=== PATIENT | female | born 1965 | race Caucasian/White ===

== ENCOUNTER 2017-05-05 17:44 | Inpatient (IN) | payer OTHER ==
[2017-05-05] MEDS ORDERED: NORMAL SALINE 1000 ML 1,000 ML IV ONE ×2 (18:35→21:52)
[2017-05-05] MEDS ORDERED: ACETAMINOPHEN 325 MG TABLET PO ONE (19:01)
[2017-05-05] MEDS ORDERED: KETOROLAC TROMETHAMINE INJ/PF 30 MG/1 ML SDV IV ONE (19:01)
[2017-05-05 19:20] LABS: VENOUS BLOOD BASE EXCESS 4.2 mmol/L; VENOUS BLOOD HCO3 28.9 mmol/L (20-32); VENOUS BLOOD PCO2 43.8 mmHg (35-63); VENOUS BLOOD PH 7.44 (7.30-7.42)
[2017-05-05 19:21] LABS: HEMATOCRIT 37.9 % (36.0-47.0); HEMOGLOBIN 13.3 g/dL (12.0-15.5); MEAN CORPUSCULAR HEMOGLOBIN 29.9 pg (27.0-33.4); MEAN CORPUSCULAR HGB CONC 35.1 g/dL (32.0-36.0); MEAN CORPUSCULAR VOLUME 85 fl (80-97); PLATELET COUNT 166 10^3/uL (150-450); RED BLOOD COUNT 4.44 10^6/uL (3.72-5.28); RED CELL DISTRIBUTION WIDTH 13.4 % (11.5-14.0); WHITE BLOOD COUNT 5.8 10^3/uL (4.0-10.5)
[2017-05-05 19:30] LABS: PROTHROMBIN TIME 12.6 SEC (11.4-15.4)
[2017-05-05 19:31] LABS: INTERNATIONAL RATION (INR) 0.88
[2017-05-05 19:32] LABS: ALANINE AMINOTRANSFERASE 39 U/L (9-52); ALBUMIN 3.9 g/dL (3.5-5.0); ALKALINE PHOSPHATASE 76 U/L (38-126); ANION GAP 11 (5-19); ASPARTATE AMINO TRANSFERASE 59 U/L (14-36); BILIRUBIN,DIRECT 0.4 mg/dL (0.0-0.4); BILIRUBIN,TOTAL 0.4 mg/dL (0.2-1.3); BLOOD UREA NITROGEN 7 mg/dL (7-20); CARBON DIOXIDE 26 mmol/L (22-30); CHLORIDE 99 mmol/L (98-107); GLUCOSE 114 mg/dL (75-110); POTASSIUM 3.1 mmol/L (3.6-5.0); SODIUM 136.1 mmol/L (137-145); TOTAL PROTEIN 6.5 g/dL (6.3-8.2)
--- NOTE | 2017-05-05 19:42 | RADIOLOGY REPORT (SQ) ---
EXAM DESCRIPTION: CHEST PA/LAT COMPLETED DATE/TIME: 05/05/2017 7:31 pm REASON FOR STUDY: fever COMPARISON: None. EXAM PARAMETERS: NUMBER OF VIEWS: two views TECHNIQUE: Digital Frontal and Lateral radiographic views of the chest acquired. RADIATION DOSE: NA LIMITATIONS: none FINDINGS: LUNGS AND PLEURA: Mild by focal pleuroparenchymal scarring peer Left lower lobe airspace d isease. Lungs and pleural spaces otherwise clear. MEDIASTINUM AND HILAR STRUCTURES: No masses or contour abnormalities. HEART AND VASCULAR STRUCTURES: Heart normal size. No evidence for failure. BONES: No acute findings. HARDWARE: None in the chest. OTHER: No other significant finding. IMPRESSION: LEFT LOWER LOBE AIRSPACE DISEASE SUSPICIOUS FOR PNEUMONIA. RECOMMEND FOLLOWUP RADIOGRAP HS 4 TO 6 WEEKS TO ENSURE RESOLUTION. TECHNICAL DOCUMENTATION: JOB ID: [id number] [employer]- All Rights Reserved Reading location - IP/workstation name: [email or web address]
[2017-05-05 19:51] LABS: ABSOLUTE LYMPHOCYTES# (MANUAL) 0.3 10^3/uL (0.5-4.7); ABSOLUTE MONOCYTES # (MANUAL) 0.5 10^3/uL (0.1-1.4); BAND NEUTROPHILS % (MANUAL) 11 % (3-5); BASOPHILS % (MANUAL) 0 % (0-2); EOSINOPHILS % (MANUAL) 0 % (0-6); LYMPHOCYTES % (MANUAL) 6 % (13-45); MONOCYTES % (MANUAL) 8 % (3-13); SEGMENTED NEUTROPHILS % (MAN) 75 % (42-78); TOTAL CELLS COUNTED 100
[2017-05-05 19:53] LABS: PLATELET COMMENT ADEQUATE; PLATELET LARGE PRESENT; POLYCHROMASIA SLIGHT; TOXIC VACUOLATION PRESENT
[2017-05-05] MEDS ORDERED: IPRATROPIUM/ALBUTEROL 0.5-2.5 MG/3 ML AMPUL NEB ONE (20:59)
[2017-05-05] MEDS ORDERED: LEVOFLOXACIN 750 MG/D5W RTU 750 MG/150 ML RTUPB IV ONE (20:59)
[2017-05-05 21:10] LABS: APPEARANCE,URINE CLEAR; BILIRUBIN,URINE NEGATIVE (NEGATIVE); COLOR,URINE YELLOW; GLUCOSE, URINE NEGATIVE (NEGATIVE); KETONES,URINE TRACE mg/dL (NEGATIVE); LEUKOCYTE ESTERASE,URINE NEGATIVE (NEGATIVE); NITRITE,URINE NEGATIVE (NEGATIVE); PROTEIN,URINE NEGATIVE (NEGATIVE); URINE SPECIFIC GRAVITY 1.005; UROBILINOGEN,URINE NEGATIVE mg/dL (<2.0)
[2017-05-05] MEDS ORDERED: ACETAMINOPHEN 325 MG TABLET PO PRN (22:04)
[2017-05-05] MEDS ORDERED: IPRATROPIUM/ALBUTEROL 0.5-2.5 MG/3 ML AMPUL NEB PRN (22:04)
[2017-05-05] MEDS ORDERED: GUAIFENESIN SYRP 200 MG/10 ML UDC PO PRN (22:04)
--- NOTE | 2017-05-05 22:05 | ER Document Report ---
ED General - General Chief Complaint: Headache Stated Complaint: COUGH, BODY ACHE Time Seen by Provider: 05/05/17 18:32 TRAVEL OUTSIDE OF THE [place] IN LAST 30 DAYS: No - HPI Patient complains to provider of: Fever cough Notes: Patient coming in for evaluation of fever and cough ongoing for the last 5 days. Patient states multiple family members that I also have been sick. Patient denies any past medical history. Patient does not smoke or drink alcohol or do any drugs. Upon patient arrival patient with a fever of 103 heart rate of 111 blood pressure 95. Patient also was found to be slightly hypoxic with SPO2 at 98%. Patient states yellow sputum no recent antibiotics or recent travel. Denies nausea vomiting diarrhea - Related Data Allergies/Adverse Reactions: codeine [Codeine] Allergy (Verified 05/05/17 17:48) Nausea Past Medical History - Social History Smoking Status: Never Smoker Chew tobacco use (# tins/day): No Frequency of alcohol use: None Drug Abuse: None Family History: Reviewed & Not Pertinent Patient has suicidal ideation: No Patient has homicidal ideation: No Pulmonary Medical History: Reports: Hx Asthma, Hx Bronchitis Renal/ Medical History: Denies: Hx Peritoneal Dialysis Past Surgical History: Reports: Hx Hysterectomy, Hx Tubal Ligation - Immunizations Immunizations up to date: Yes Hx Diphtheria, Pertussis, Tetanus Vaccination: Yes Review of Systems - Review of Systems Constitutional: Fever EENT: No symptoms reported Cardiovascular: No symptoms reported Respiratory: Cough, Short of breath Gastrointestinal: No symptoms reported Genitourinary: No symptoms reported Female Genitourinary: No symptoms reported Musculoskeletal: No symptoms reported Skin: No symptoms reported Hematologic/Lymphatic: No symptoms reported Neurological/Psychological: No symptoms reported -: Yes All other systems reviewed and negative Physical Exam - Vital signs Vitals: Resp Pulse Ox 21 H 93 05/05/17 18:46 05/05/17 18:46 Interpretation: Hypotensive, Tachycardic, Hypoxic, Febrile - General General appearance: Appears well, Alert - HEENT Head: Normocephalic, Atraumatic Eyes: Normal Pupils: PERRL - Respiratory Respiratory status: No respiratory distress Chest status: Nontender Breath sounds: Normal, Rhonchi, Wheezing Chest palpation: Normal - Cardiovascular Rhythm: Tachycardia Heart sounds: Normal auscultation Murmur: No - Abdominal Inspection: Normal Distension: No distension Bowel sounds: Normal Tenderness: Nontender Organomegaly: No organomegaly - Back Back: Normal, Nontender - Extremities General upper extremity: Normal inspection, Nontender, Normal color, Normal ROM , Normal temperature General lower extremity: Normal inspection, Nontender, Normal color, Normal ROM , Normal temperature, Normal weight bearing. No: Becky's sign - Neurological Neuro grossly intact: Yes Cognition: Normal Orientation: AAOx4 [place] Coma Scale Eye Opening: Spontaneous [place] Coma Scale Verbal: Oriented Nina Coma Scale Motor: Obeys Commands [place] Coma Scale Total: 15 Speech: Normal Motor strength normal: LUE, RUE, LLE, RLE Sensory: Normal - Psychological Associated symptoms: Normal affect, Normal mood - Skin Skin Temperature: Warm Skin Moisture: Dry Skin Color: Normal Course - Re-evaluation Re-evalutation: 05/05/17 22:35 Patient laboratory values showed a bandemia and hypokalemia. Chest x-ray showed a left lower lobe pneumonia. Patient was given IV fluids with initial improvement of heart rate and blood pressure however upon reevaluation patient with tachycardia and blood pressure still 95 patient is on 2 L of oxygen and when taken off oxygen SPO2 did go down to 88%. Concern for possible early sepsis. Patient was given Levaquin discussed with hospitalist for further evaluation and admission. - Vital Signs Vital signs: Temp Pulse Resp BP Pulse Ox 98.5 F 18 97/58 L 93 05/05/17 22:19 05/05/17 21:33 05/05/17 21:33 05/05/17 21:33 - Laboratory Result Diagrams: 05/05/17 18:54 05/05/17 18:54 Laboratory results interpreted by me: 05/05/17 05/05/17 05/05/17 18:54 18:54 18:54 Band Neutrophils % 11 H Lymphocytes % (Manual) 6 L Abs Lymphs (Manual) 0.3 L VBG pH 7.44 H Sodium 136.1 L Potassium 3.1 L Creatinine 0.48 L Glucose 114 H AST 59 H Urine Ketones Urine Blood 05/05/17 20:45 Band Neutrophils % Lymphocytes % (Manual) Abs Lymphs (Manual) VBG pH Sodium Potassium Creatinine Glucose AST Urine Ketones TRACE H Urine Blood MODERATE H Critical Care Note - Critical Care Note Total time excluding time spent on procedures (mins): 35 Comments: multiple evals for sepsis Discharge - Discharge Clinical Impression: Dehydration Pneumonia Qualifiers: Pneumonia type: due to unspecified organism Laterality: left Lung location: lower lobe of lung Qualified Code(s): J18.1 - Lobar pneumonia, unspecified organism Fever Qualifiers: Fever type: unspecified Qualified Code(s): R50.9 - Fever, unspecified Condition: Good Disposition: ADMITTED INPATIENT Admitting Provider: [facility] Admitted: Telemetry
--- NOTE | 2017-05-05 22:37 | ER Document Report ---
Sepsis - Sepsis Documentation Sepsis Patient: Yes - Vital Signs Vitals: Temp Pulse Resp BP Pulse Ox 98.5 F 18 97/58 L 93 05/05/17 22:19 05/05/17 21:33 05/05/17 21:33 05/05/17 21:33 - Cardiovascular Peripheral Pulse Strength: Normal Capillary refill: < 3 seconds Rhythm: Regular, Tachycardia Heart Sounds: Normal auscultation - Respiratory Breath Sounds: Rhonchi Respiratory Status: No respiratory distress - Skin Skin Color: Normal
[2017-05-05] MEDS ORDERED: CHLORPHENIRAMINE MALEATE 4 MG TABLET PO ONE (23:52)
[2017-05-06] MEDS ORDERED: CHLORPHENIRAMINE MALEATE 4 MG TABLET ONE (01:10)
[2017-05-06] MEDS: NORMAL SALINE 1000 ML 1,000 ML IV SCH ×2 (01:17→03:50)
[2017-05-06] MEDS: IPRATROPIUM/ALBUTEROL 0.5-2.5 MG/3 ML AMPUL NEB SCH ×4 (02:06→20:13)
--- NOTE | 2017-05-06 03:06 | PDOC H&P ---
History of Present Illness Admission Date/PCP: 05/05/17 22:17 Patient complains of: Shortness of breath and cough History of Present Illness: JAJA COHEN is a 52 year old female with a past medical history of chronic bronchitis, who presents with 4 days of rhinorrhea sinus congestion productive cough developing fever and shortness of breath. She has had several ill contacts with pneumonia. In the emergency room she is found to have sepsis with hypotension, tachycardia, bandemia of 11 and an infiltrate of the left lower lobe. She receives albuterol and Atrovent started on empiric antibiotics with oxygen and referred to the hospitalist for admission. Patient denies previous pneumonia or recent antibiotics. Past Medical History Medical History: None Cardiac Medical History: Reports: None Pulmonary Medical History: Reports: Asthma, Bronchitis EENT Medical History: Reports: None Neurological Medical History: Reports: None Endocrine Medical History: Reports: None Renal/ Medical History: Reports: None Malignancy Medical History: Reports: None GI Medical History: Reports: None Musculoskeltal Medical History: Reports: None Skin Medical History: Reports: None Traumatic Medical History: Reports: None Hematology: Reports: None Infectious Medical History: Reports: None Past Surgical History Past Surgical History: Reports: Hysterectomy, Tubal Ligation Social History Information Source: Patient Smoking Status: Never Smoker Frequency of Alcohol Use: None Hx Recreational Drug Use: No Drugs: None Hx Prescription Drug Abuse: No - Advance Directive Resuscitation Status: Full Code Family History Family History: None Parental Family History Reviewed: Yes Children Family History Reviewed: Yes Sibling(s) Family History Reviewed.: Yes Medication/Allergy Home Medications: Hydrocodone/Chlorphen P-Stirex [Tussionex Pennkinetic Susp] 5 ml PO Q12 PRN # 100 laura.12h.sr 03/24/13 Ondansetron [Zofran Odt 4 mg Tablet] 1 - 2 tab PO Q4H PRN #15 tab.rapdis Acyclovir 800 mg PO 5XD #50 tab 03/18/14 Allergies/Adverse Reactions: codeine [Codeine] Allergy (Verified 05/05/17 17:48) Nausea Review of Systems Constitutional: ABSENT: chills, fever(s), headache(s), weight gain, weight loss Eyes: ABSENT: visual disturbances Ears: ABSENT: hearing changes Cardiovascular: ABSENT: chest pain, dyspnea on exertion, edema, orthropnea, palpitations Respiratory: PRESENT: as per HPI, cough, dyspnea, sputum. ABSENT: hemoptysis Gastrointestinal: ABSENT: abdominal pain, constipation, diarrhea, hematemesis, hematochezia, nausea, vomiting Genitourinary: ABSENT: dysuria, hematuria Musculoskeletal: ABSENT: joint swelling Integumentary: ABSENT: rash, wounds Neurological: ABSENT: abnormal gait, abnormal speech, confusion, dizziness, focal weakness, syncope Psychiatric: ABSENT: anxiety, depression, homidical ideation, suicidal ideation Endocrine: ABSENT: cold intolerance, heat intolerance, polydipsia, polyuria Hematologic/Lymphatic: ABSENT: easy bleeding, easy bruising Physical Exam Vital Signs: Temp Pulse Resp BP Pulse Ox 98.1 F 87 16 92/53 L 94 05/06/17 00:25 05/06/17 00:25 05/06/17 00:25 05/06/17 00:25 05/06/17 00:25 Intake & Output 05/04/17 05/05/17 05/06/17 11:59 11:59 11:59 Intake Total 0 Balance 0 General appearance: PRESENT: cooperative, severe distress, thin Head exam: PRESENT: atraumatic, normocephalic Eye exam: PRESENT: conjunctiva pink, EOMI, PERRLA. ABSENT: scleral icterus Ear exam: PRESENT: normal external ear exam Mouth exam: PRESENT: moist, tongue midline Neck exam: ABSENT: carotid bruit, JVD, lymphadenopathy, thyromegaly Respiratory exam: PRESENT: accessory muscle use, crackles, decreased breath sounds, rales, retraction, rhonchi, tachypnea, wheezes. ABSENT: chest wall tenderness, clear to auscultation funmilayo, prolonged expiratory phas Cardiovascular exam: PRESENT: RRR. ABSENT: diastolic murmur, rubs, systolic murmur Pulses: PRESENT: normal dorsalis pedis pul Vascular exam: PRESENT: normal capillary refill GI/Abdominal exam: PRESENT: normal bowel sounds, soft. ABSENT: distended, guarding, mass, organolmegaly, rebound, tenderness Rectal exam: PRESENT: deferred Extremities exam: PRESENT: full ROM. ABSENT: calf tenderness, clubbing, pedal edema Neurological exam: PRESENT: alert, awake, oriented to person, oriented to place , oriented to time, oriented to situation, CN II-XII grossly intact. ABSENT: motor sensory deficit Psychiatric exam: PRESENT: appropriate affect, normal mood. ABSENT: homicidal ideation, suicidal ideation Skin exam: PRESENT: dry, intact, warm. ABSENT: cyanosis, rash Results Impressions: Chest X-Ray 05/05/17 18:33 IMPRESSION: LEFT LOWER LOBE AIRSPACE DISEASE SUSPICIOUS FOR PNEUMONIA. RECOMMEND FOLLOWUP RADIOGRAPHS 4 TO 6 WEEKS TO ENSURE RESOLUTION. Assessment & Plan - Diagnosis (1) Sepsis Plan: Secondary to pneumonia, IV fluid challenge, consider Solu-Cortef and or pressors. (2) Acute sinusitis Is this a current diagnosis for this admission?: Yes Plan: Flonase, chlorpheniramine, empiric antibiotics, (3) Pneumonia Qualifiers: Pneumonia type: due to unspecified organism Laterality: left Lung location: lower lobe of lung Qualified Code(s): J18.1 - Lobar pneumonia, unspecified organism Is this a current diagnosis for this admission?: Yes Plan: Telemetry bed, incentive spirometry, flutter valve, pneumonia care set initiated. Follow-up CBC and blood culture - Time Time Spent: 50 to 70 Minutes - Inpatient Certification Medical Necessity: Need Close Monitoring Due to Risk of Patient Decompensation
[2017-05-06] MEDS: HEPARIN SOD (PORCINE) 5,000 UNIT/ML 1 ML SYRINGE SUBCUT SCH ×3 (06:36→22:23)
[2017-05-06 07:47] LABS: ABSOLUTE LYMPHOCYTES (AUTO) 0.5 10^3/uL (0.5-4.7); ABSOLUTE MONOCYTES (AUTO) 0.2 10^3/uL (0.1-1.4); ABSOLUTE NEUT (AUTO) 3.6 10^3/uL (1.7-8.2); BASOPHILS % (AUTO) 0.2 % (0-2); HEMATOCRIT 32.1 % (36.0-47.0); HEMOGLOBIN 11.6 g/dL (12.0-15.5); LYMPHOCYTES % (AUTO) 11.9 % (13-45); MEAN CORPUSCULAR HEMOGLOBIN 30.9 pg (27.0-33.4); MEAN CORPUSCULAR HGB CONC 36.2 g/dL (32.0-36.0); MEAN CORPUSCULAR VOLUME 85 fl (80-97); MONOCYTES % (AUTO) 4.5 % (3-13); PLATELET COUNT 119 10^3/uL (150-450); RED BLOOD COUNT 3.76 10^6/uL (3.72-5.28); RED CELL DISTRIBUTION WIDTH 13.2 % (11.5-14.0); SEGMENTED NEUTROPHILS % (AUTO) 83.4 % (42-78); TOTAL CELLS COUNTED % (AUTO) 100 %; WHITE BLOOD COUNT 4.3 10^3/uL (4.0-10.5)
--- NOTE | 2017-05-06 08:05 | EKG REPORT ---
SEVERITY:- ABNORMAL ECG - SINUS TACHYCARDIA LEFT ANTERIOR FASCICULAR BLOCK BORDERLINE T ABNORMALITIES, ANT-LAT LEADS : Confirmed by: Osmel Henley MD 06-May-2017 08:04:56
[2017-05-06 08:15] LABS: ANION GAP 7 (5-19); BLOOD UREA NITROGEN 4 mg/dL (7-20); CALCIUM 7.8 mg/dL (8.4-10.2); CARBON DIOXIDE 25 mmol/L (22-30); CHLORIDE 112 mmol/L (98-107); GLUCOSE 98 mg/dL (75-110); SODIUM 144.1 mmol/L (137-145)
[2017-05-06 08:42] LABS: POTASSIUM 2.8 mmol/L (3.6-5.0)
[2017-05-06] MEDS ORDERED: POTASSIUM CHLORIDE 10 MEQ TABLET.SA PO ONE (08:52)
[2017-05-06] MEDS: LEVOFLOXACIN 750 MG/D5W RTU 750 MG/150 ML RTUPB IV SCH (09:27)
[2017-05-06] MEDS: FLUTICASONE NASAL SPRAY 50 MCG/SPRY 120 SPRAY/16 GM NASL SCH ×2 (09:27→22:23)
[2017-05-06] MEDS ORDERED: TRAMADOL HCL 50 MG TABLET PO PRN (10:56)
[2017-05-06] MEDS ORDERED: LORATADINE 10 MG TABLET PO ONE (11:45)
[2017-05-06] MEDS: POTASSI CL 20 MEQ/50 ML RIDER 20 MEQ/50 ML RTUPB IV SCH ×2 (12:02→14:52)
[2017-05-06] MEDS: ONDANSETRON HCL INJ/PF 4 MG/2 ML SDV IV PRN (12:03)
--- NOTE | 2017-05-06 21:58 | PDOC PROGRESS REPORT ---
Subjective Progress Note for:: 05/06/17 Subjective:: 52 year old female with a past medical history of chronic bronchitis, who presents with 4 days of rhinorrhea, sinus congestion, productive cough developing fever and shortness of breath. She does describe fever and body aches, unclear if she could have the flu, no test available at this hospital. Tamiflu would not be effective this far into the infection. Patient appears to show a response to the Levaquin started, and has a left lower lobe PNA on CXR. She was nauseated and treated with zofran this AM. Complained of a DELACRUZ and nasal congestion. Reason For Visit: SEPSIS, PNEUMONIA Physical Exam Vital Signs: Temp Pulse Resp BP Pulse Ox 98.5 F 96 16 94/51 L 96 05/06/17 15:52 05/06/17 20:13 05/06/17 20:13 05/06/17 15:52 05/06/17 20:13 Pulse Oximeter Continuous Start: 05/05/17 22: 04 Freq: RTQ4 Status: Active Document 05/06/17 20:13 EAL (Rec: 05/06/17 20:27 EAL [email or web address]) Pulse Oximetry Assessment Oxygen Saturation (92-100) 96 Oxygen Flow Rate (L/min) 4 Oxygen Delivery Method Nasal Cannula Fraction of Inspired Oxygen (FIO2) 36 Equipment Usage Equipment in Use Continuous SpO2 Machine # 5 Intake & Output 05/05/17 05/06/17 05/07/17 06:59 06:59 06:59 Intake Total 300 1320 Balance 300 1320 Weight 70 kg General appearance: PRESENT: no acute distress, thin Head exam: PRESENT: atraumatic, normocephalic Eye exam: PRESENT: EOMI, PERRLA. ABSENT: conjunctiva pink Ear exam: PRESENT: normal external ear exam Mouth exam: PRESENT: moist, neck supple, tongue midline Neck exam: PRESENT: full ROM. ABSENT: JVD, lymphadenopathy, tenderness, thyromegaly Respiratory exam: PRESENT: rales. ABSENT: accessory muscle use, rhonchi, wheezes Cardiovascular exam: PRESENT: RRR, +S1, +S2. ABSENT: diastolic murmur, systolic murmur Pulses: PRESENT: normal radial pulses GI/Abdominal exam: ABSENT: ascites, distended, guarding, mass Extremities exam: ABSENT: clubbing, joint swelling Musculoskeletal exam: PRESENT: full ROM. ABSENT: deformity, normal inspection Neurological exam: PRESENT: alert, oriented to person, oriented to place, oriented to time, CN II-XII grossly intact Psychiatric exam: ABSENT: agitated, anxious, flat affect Focused psych exam: ABSENT: delusional, paranoid Skin exam: ABSENT: abrasion, cyanosis, dry, pallor Results Laboratory Results: 05/06/17 07:29 05/06/17 07:29 05/06/17 05/06/17 07:29 07:29 WBC 4.3 RBC 3.76 Hgb 11.6 L Hct 32.1 L MCV 85 MCH 30.9 MCHC 36.2 H RDW 13.2 Plt Count 119 L Seg Neutrophils % 83.4 H Lymphocytes % 11.9 L Monocytes % 4.5 Eosinophils % 0.0 Basophils % 0.2 Absolute Neutrophils 3.6 Absolute Lymphocytes 0.5 Absolute Monocytes 0.2 Absolute Eosinophils 0.0 Absolute Basophils 0.0 Sodium 144.1 Potassium 2.8 L* Chloride 112 H Carbon Dioxide 25 Anion Gap 7 BUN 4 L Creatinine 0.40 L Est GFR ( Amer) > 60 Est GFR (Non-Af Amer) > 60 Glucose 98 Calcium 7.8 L Impressions: Chest X-Ray 05/05/17 18:33 IMPRESSION: LEFT LOWER LOBE AIRSPACE DISEASE SUSPICIOUS FOR PNEUMONIA. RECOMMEND FOLLOWUP RADIOGRAPHS 4 TO 6 WEEKS TO ENSURE RESOLUTION. Assessment & Plan - Plan Summary Plan Summary: 1. Sepsis. PNA source, tachycardia, tachypnea, soft blood pressure. IVF, Levaquin, supportive care. 2. Left lower lobe PNA. continue IV Levaquin. continue supportive care. supportive O2, 4L nebulized meds prn. 3. Nasal congestion. with possible sinusitis, hold on doing any CT sinus eval, given her improvement on current therapy. 4. Headache. prn pain medications. 5. Hypokalemia. replacing 6. Nausea and vomiting prn zofran
[2017-05-07] MEDS: IPRATROPIUM/ALBUTEROL 0.5-2.5 MG/3 ML AMPUL NEB SCH ×4 (02:14→20:12)
[2017-05-07] MEDS: HEPARIN SOD (PORCINE) 5,000 UNIT/ML 1 ML SYRINGE SUBCUT SCH ×3 (05:44→22:09)
[2017-05-07 06:06] LABS: HEMATOCRIT 31.7 % (36.0-47.0); HEMOGLOBIN 11.1 g/dL (12.0-15.5); MEAN CORPUSCULAR HEMOGLOBIN 30.2 pg (27.0-33.4); MEAN CORPUSCULAR HGB CONC 35.1 g/dL (32.0-36.0); MEAN CORPUSCULAR VOLUME 86 fl (80-97); PLATELET COUNT 121 10^3/uL (150-450); RED BLOOD COUNT 3.69 10^6/uL (3.72-5.28); RED CELL DISTRIBUTION WIDTH 13.6 % (11.5-14.0); WHITE BLOOD COUNT 3.6 10^3/uL (4.0-10.5)
[2017-05-07 06:29] LABS: ALBUMIN 3.1 g/dL (3.5-5.0); ANION GAP 8 (5-19); BLOOD UREA NITROGEN 2 mg/dL (7-20); CALCIUM 8.7 mg/dL (8.4-10.2); CARBON DIOXIDE 29 mmol/L (22-30); CHLORIDE 107 mmol/L (98-107); GLUCOSE 101 mg/dL (75-110); PHOSPHORUS 2.8 mg/dL (2.5-4.5); SODIUM 143.6 mmol/L (137-145)
[2017-05-07 06:32] LABS: POTASSIUM 2.9 mmol/L (3.6-5.0)
[2017-05-07] MEDS: LORATADINE 10 MG TABLET PO SCH (07:55)
[2017-05-07] MEDS: LEVOFLOXACIN 750 MG/D5W RTU 750 MG/150 ML RTUPB IV SCH (09:58)
[2017-05-07] MEDS: FLUTICASONE NASAL SPRAY 50 MCG/SPRY 120 SPRAY/16 GM NASL SCH ×2 (09:58→22:17)
[2017-05-07] MEDS ORDERED: POTASSIUM CHLORIDE 10 MEQ TABLET.SA PO SCH (10:00)
[2017-05-07] MEDS: ONDANSETRON HCL INJ/PF 4 MG/2 ML SDV IV PRN (10:51)
[2017-05-07] MEDS ORDERED: POTASSIUM PHOS,M-BASIC-D-BASIC 40 MMOL in NORMAL SALINE 1000 ML 1,000 ML IV ONE (11:53)
--- NOTE | 2017-05-07 12:19 | PROGRESS NOTE E ---
Progress Note NAME: JAJA COHEN : 1965 AGE: 52Y DATE: 05/07/2017 ROOM: 414 SUBJECTIVE: The patient is a 52-year-old female who has a past medical history of chronic bronchitis, COPD. She was presented for 4 days with rhinorrhea, sinus congestion, productive cough, developing fever, shortness of breath. OBJECTIVE: GENERAL: The patient is lying in bed, comfortable, not in distress. VITAL SIGNS: Heart rate 99, respiratory rate 16, saturation 99% on 2 L. HEENT: Normocephalic, atraumatic. Pupils are round and reactive to light and accommodation bilaterally. Extraocular movements intact. Ears: Tympanic membranes intact bilaterally. No discharge from the ears. No discharge from the nose. NECK: Supple. No increased JVD. No thyromegaly. No lymphadenopathy. CARDIOVASCULAR: Normal S1 and S2. Regular rate and rhythm. No murmur. No gallop. RESPIRATORY: Bilateral crackles and wheezing. ABDOMEN: Soft and nontender. MUSCULOSKELETAL: No edema. NEUROLOGIC: Awake, alert. SKIN: No rash. DIAGNOSTIC DATA: Labs: White blood count 3.6, hemoglobin 11. Potassium 2.9, sodium 143. ASSESSMENT: 1. SEPSIS SECONDARY TO PNEUMONIA, RESOLVING. 2. LEFT LOWER LOBE PNEUMONIA, ON IV LEVAQUIN AND OXYGEN, IMPROVED. 3. NASAL CONGESTION. 4. HEADACHE. 5. HYPOKALEMIA, REPLACE. 6. NAUSEA AND VOMITING, ZOFRAN. PLAN: Continue IV Levaquin. Replace electrolytes with IV potassium. DISPOSITION: Home tomorrow. DICTATING PHYSICIAN: JAMIE RICHTER M.D. [id number] PHY#: [id number] ID: [id number] JOB#: [id number] ACCT: [id number] cc: >
[2017-05-08] MEDS: IPRATROPIUM/ALBUTEROL 0.5-2.5 MG/3 ML AMPUL NEB SCH ×2 (02:22→09:07)
[2017-05-08 06:15] LABS: ABSOLUTE MONOCYTES (AUTO) 0.2 10^3/uL (0.1-1.4); ABSOLUTE NEUT (AUTO) 2.7 10^3/uL (1.7-8.2); BASOPHILS % (AUTO) 0.3 % (0-2); EOSINOPHILS % (AUTO) 0.5 % (0-6); HEMATOCRIT 36.8 % (36.0-47.0); HEMOGLOBIN 12.9 g/dL (12.0-15.5); LYMPHOCYTES % (AUTO) 24.8 % (13-45); MEAN CORPUSCULAR HEMOGLOBIN 30.1 pg (27.0-33.4); MEAN CORPUSCULAR VOLUME 86 fl (80-97); MONOCYTES % (AUTO) 5.7 % (3-13); PLATELET COUNT 148 10^3/uL (150-450); RED BLOOD COUNT 4.28 10^6/uL (3.72-5.28); RED CELL DISTRIBUTION WIDTH 13.5 % (11.5-14.0); SEGMENTED NEUTROPHILS % (AUTO) 68.7 % (42-78); TOTAL CELLS COUNTED % (AUTO) 100 %; WHITE BLOOD COUNT 3.9 10^3/uL (4.0-10.5)
[2017-05-08] MEDS: HEPARIN SOD (PORCINE) 5,000 UNIT/ML 1 ML SYRINGE SUBCUT SCH (06:40)
[2017-05-08 07:25] LABS: ALBUMIN 3.8 g/dL (3.5-5.0); ANION GAP 12 (5-19); BLOOD UREA NITROGEN 3 mg/dL (7-20); CALCIUM 9.4 mg/dL (8.4-10.2); CARBON DIOXIDE 29 mmol/L (22-30); CHLORIDE 105 mmol/L (98-107); GLUCOSE 90 mg/dL (75-110); PHOSPHORUS 3.4 mg/dL (2.5-4.5); POTASSIUM 3.4 mmol/L (3.6-5.0); SODIUM 146.1 mmol/L (137-145)
[2017-05-08 08:30] VITALS: BP 97/58
[2017-05-08] MEDS: LORATADINE 10 MG TABLET PO SCH (08:48)
[2017-05-08] MEDS: LEVOFLOXACIN 750 MG/D5W RTU 750 MG/150 ML RTUPB IV SCH (09:12)
[2017-05-08] MEDS: FLUTICASONE NASAL SPRAY 50 MCG/SPRY 120 SPRAY/16 GM NASL SCH (09:13)
[2017-05-08] MEDS ORDERED: PROMETHAZINE HCL 25 MG TABLET PO PRN (09:17)
[2017-05-09] MEDS ORDERED: LEVOFLOXACIN 750 MG TABLET PO SCH (10:00)
--- NOTE | 2017-05-09 15:13 | DISCHARGE SUMMARY E ---
Discharge Summary NAME: JAJA COHEN : 1965 AGE: 52Y ADMITTED: 05/05/2017 DISCHARGED: 05/08/2017 ADMISSION DIAGNOSES: 1. SEPSIS. 2. ACUTE SINUSITIS, PNEUMONIA. DISCHARGE DIAGNOSES: 1. SEPSIS SECONDARY TO PNEUMONIA. 2. SINUTISIS. 3. HYPOKALEMIA. 4. NAUSEA, VOMITING RESOLVED. IMAGING: Chest x-ray showed left lower lobe opacity suspicious for pneumonia. HOSPITAL COURSE: The patient is a 52-year-old female who has a past medical history of chronic bronchitis presented for rhinorrhea, congestion, productive cough, developed fever and shortness of breath. The patient had a chest x-ray which showed possible left lower lobe pneumonia. She was started on antibiotics and Levaquin IV. Her symptoms improved. She did not have leukocytosis but difficulty breathing improved and congestion also improved. The patient had hypokalemia during her stay and we gave her potassium chloride p.o. However, she vomited twice. We switched to IV. The patient wants to go home today to take care of her grandson because her daughter is sick and went to the hospital and she requested to be discharged. She is relatively doing well. Her lab today shows sodium 146, potassium 3.4, creatinine 0.5. Vitals stable upon discharge. GENERAL: The patient is lying in bed, comfortable, not in distress. VITAL SIGNS: Temperature 98, heart rate 90, blood pressure 97/55, respiratory rate 12, saturation 99% on 2 L. HEENT: Normocephalic, atraumatic. Pupils are round and reactive to light and accommodation bilaterally. Extraocular movements intact. Ears: Tympanic membranes intact bilaterally. No discharge from the ears. No discharge from the nose. NECK: Supple. No increased JVD. No thyromegaly. No lymphadenopathy. CARDIOVASCULAR: Normal S1 and S2. Regular rate and rhythm. No murmur. No gallop. RESPIRATORY: Lungs clear. ABDOMEN: Soft and nontender. MUSCULOSKELETAL: No edema. NEUROLOGIC: Awake, alert. LABORATORY: Sodium 146, potassium 3.4, creatinine 0.5. White blood count 3.9. DISCHARGE DISPOSITION: Discharge patient home. MEDICATIONS: Continue her home medications and she is on albuterol at home. Continue albuterol. New medication: 1. Phenergan 12.5 mg p.o. q.4 hours p.r.n. 2. Levaquin 750 mg p.o. daily. for another 4 days. 3. Robitussin syrup 200 mg p.o. q.i.d. 4. Flonase nasal spray 2 puffs q.12 hours. The patient cannot take potassium chloride because of severe nausea, vomiting and we are going to instruct to eat 2 bananas every day and drink orange juice 2 times a day. FOLLOWUP: Followup is . DIET: High potassium diet. ACTIVITY: As tolerated. DICTATING PHYSICIAN: JAMIE RICHTER M.D. [id number] PHY#: [id number] ID: [id number] JOB#: [id number] ACCT: [id number] cc:CHAKA WHYTE M.D., ABDELAZIZ M.D. >
== END 2017-05-08 11:22 | disposition home or self-care (01) | DRG 871 ==
LOC: ER 17:44 → EH 22:17 → 4N 23:18
PROVIDERS: ADMIT Internal Medicine; ATTEND Internal Medicine
PROC: 3E0F73Z Introduction of Anti-inflammatory into Respiratory Tract, Via Natural or Artificial Opening (ICD-10-PCS; principal; 2017-05-06)
DX: A41.9 Sepsis, unspecified organism (principal); J18.1 Lobar pneumonia, unspecified organism; E86.0 Dehydration; J01.90 Acute sinusitis, unspecified; E87.6 Hypokalemia; J42 Unspecified chronic bronchitis; J45.909 Unspecified asthma, uncomplicated; R11.2 Nausea with vomiting, unspecified; Z79.899 Other long term (current) drug therapy; Z90.710 Acquired absence of both cervix and uterus; Z88.6 Allergy status to analgesic agent
CPT/HCPCS: 36415; 71046; 80048; 80053; 80069; 81001; 82803; 83605; 83735; 84484; 85025; 85027; 85610; 87040; 87070; 87086; 87205; 93005; 93010; 94640; 94667; 94668; 94762; 94799; 96361; 96365; 96375; 99291; J1644; J1885; J1956; J2405; J3480; J3490; J7030; J7620